=== PATIENT | male | born 1970 | race Two or more races ===

== ENCOUNTER 2020-10-18 14:51 | Emergency (ER) | payer OTHER ==
[~2020-10-18] VITALS: Ht 177.8 cm; Wt 235.0 kg
--- NOTE | 2020-10-18 16:15 | RAD ---
HAND RIGHT 3V History: Reason: pain metal cable went through the hand / Spl. Instructions: / History: Technique: 3 views right hand. Comparison: None. Findings: Normal alignment. No fracture. Punctate curvilinear density adjacent to the second proximal phalanx subcutaneous tissues along the radial aspect measures 1 mm. Impression: 1. Small curvilinear density adjacent to the second proximal phalanx, may represent foreign body. Electronically signed by: Kody Recinos DO (10/18/2020 4:12 PM) [facility]
[2020-10-18] MEDS ORDERED: NAPROXEN 500 MG TABLET PO STA (16:17)
[2020-10-18] MEDS ORDERED: HYDROcodone/APAP 5/325MG 1 TAB TABLET PO ONE (16:30)
[2020-10-18 16:32] VITALS: BP 140/76
[2020-10-18] MEDS ORDERED: CEPH500T PO (17:08)
--- NOTE | 2020-10-18 17:08 | PHYS DOC ---
Past Medical History Past Medical History: No Pertinent History Additional Past Medical Histor: morbid obesity, Past Surgical History: No Surgical History Smoking Status: Never Smoker Alcohol Use: Occasionally Drug Use: None General Adult EDM: Chief Complaint: HAND PROBLEM HPI: HPI: Patient is a 50 year old male patient who presents to the ED today with right hand injury, patient states a piece of metal cable went through his right hand. He is right-handed. Review of Systems: Review of Systems: Constitutional: Denies fever or chills. [] Musculoskeletal: Reports right hand injury Integument: Denies rash. [] Neurologic: Denies headache, focal weakness or sensory changes. [] Psychiatric: Denies depression or anxiety. [] Heart Score: Risk Factors: Risk Factors: DM, Current or recent (<one month) smoker, HTN, HLP, family history of CAD, obesity. Risk Scores: Score 0 - 3: 2.5% MACE over next 6 weeks - Discharge Home Score 4 - 6: 20.3% MACE over next 6 weeks - Admit for Clinical Observation Score 7 - 10: 72.7% MACE over next 6 weeks - Early Invasive Strategies Current Medications: Current Medications Medications (Trade) Dose Ordered Sig/Kaylah Start Time Stop Time Status Last Admin Dose Admin Acetaminophen/ Hydrocodone Bitart (Lortab 5/325) 2 tab 1X ONCE 10/18/20 16:30 10/18/20 16:31 DC 10/18/20 16:32 2 TAB Naproxen (Naprosyn) 500 mg 1X STAT 10/18/20 16:17 10/18/20 16:19 DC 10/18/20 16:30 500 MG Allergies: Allergies: Allergies Coded Allergies Type Severity Reaction Last Updated Verified No Known Drug Allergies 02/25/14 No Physical Exam: PE: Constitutional: Well developed, well nourished, no acute distress, non-toxic appearance. [] Skin: Warm, dry, no erythema, no rash. [] Back: No tenderness, no CVA tenderness. [] Extremities: Right hand with no obvious deformity, there is a puncture wounds through and through from the ventral aspect of the right hand webspace between the index finger and the thumb through the dorsal aspect of the hand. Full range of motion to the right hand and fingers. Adequate radial, median, ulnar sensation to the right hand. +2 right radial pulse. Cap refill less than 2 sec onds the right fingers Neurologic: Alert and oriented X 3, normal motor function, normal sensory function, no focal deficits noted. [] Psychologic: Affect normal, judgement normal, mood normal. [] Current Patient Data: Vital Signs: Vital Signs Date Time Temp Pulse Resp B/P (MAP) Pulse Ox O2 Delivery O2 Flow Rate FiO2 10/18/20 16:32 55 16 140/76 (97) 100 Room Air 10/18/20 15:48 98.2 98.2 EKG: EKG: [] Radiology/Procedures: Radiology/Procedures: []ROCEDURE: HAND RIGHT 3V HAND RIGHT 3V History: Reason: pain metal cable went through the hand / Spl. Instructions: / History: Technique: 3 views right hand. Comparison: None. Findings: Normal alignment. No fracture. Punctate curvilinear density adjacent to the second proximal phalanx subcutaneous tissues along the radial aspect measures 1 mm. Impression: 1. Small curvilinear density adjacent to the second proximal phalanx, may represent foreign body. Electronically signed by: Kody Coombs DO (10/18/2020 4:12 PM) [facility] DICTATED and SIGNED BY: KODY COOMBS DO DATE: 10/18/20 [id number] 0 Course & Med Decision Making: Course & Med Decision Making Pertinent Labs and Imaging studies reviewed. (See chart for details) This is a 50-year-old male patient presenting to the ED today with right hand injury, he had a piece of metal cable go through his right hand between the webspace of the index finger and thumb. X-rays of the right hand were negative for fracture, noted for possible foreign object. Right hand was cleaned thoroughly. Tetanus is up-to-date. Discharged on cephalexin. Follow-up with PCP. Yue Disclaimer: Yue Disclaimer: This electronic medical record was generated, in whole or in part, using a voice recognition dictation system. Departure Departure Impression: Primary Impression: Puncture wound, hand Qualified Codes: S61.441A - Puncture wound with foreign body of right hand, initial encounter Disposition: 01 DC HOME SELF CARE/HOMELESS Condition: STABLE Referrals: NO PCP (PCP) follow up with your doctor in one week Patient Instructions: Puncture Wound Additional Instructions: You were seen for puncture wound in the right hand. Your right hand x-rays were negative for any fractures. Take the prescribed antibiotics until completed. Follow-up with your doctor in 1 to 2 weeks. Come back to the ED at any point symptoms worsen Scripts Cephalexin (CEPHALEXIN) 500 Mg Tablet 1 TAB PO TID, #30 TAB Prov: ANNA MCDONALD APRN 10/18/20 ANNA MCDONALD APRN Oct 18, 2020 17:08
== END 2020-10-18 17:47 | disposition home or self-care (01) ==
LOC: ER 14:51
DX: S61.441A Puncture wound with foreign body of right hand, initial encounter (principal); M79.641 Pain in right hand; R20.2 Paresthesia of skin; E66.01 Morbid (severe) obesity due to excess calories; Z68.45 Body mass index [BMI] 70 or greater, adult; W45.8XXA Other foreign body or object entering through skin, initial encounter; Y93.89 Activity, other specified; Y92.89 Other specified places as the place of occurrence of the external cause; Y99.8 Other external cause status
CPT/HCPCS: 73130; 99283